=== PATIENT | female | born 1970 ===

== ENCOUNTER 2023-10-29 06:10 | Day surgery (SDC) | payer OTHER ==
[2023-10-18 09:33] LABS: URINE APPEARANCE Clear; URINE BILIRRUBIN Negative (NEGATIVE); URINE BLOOD Trace; URINE COLOR Yellow; URINE GLUCOSE Negative (NEGATIVE); URINE LEUKOCYTE Negative; URINE NITRATE Negative; URINE PROTEIN Negative (NEGATIVE); URINE UROBILINOGEN 0.2 E.U./dl
[2023-10-18 09:34] LABS: URINE BACTERIA 264.5 uL (0.0-1933); URINE EPITHELIAL CELLS 11.4 uL (0.0-38.8); URINE RBC 9.7 uL (0.0-20.8)
[2023-10-18 09:34] LABS: HEMATOCRIT 39.3 % (36.0-45.00); MEAN CELL VOLUME 85.6 fL (80.00-100.00); MEAN CORPUSCULAR HEMOGLOBIN 28.4 pg (27.00-32.0); MEAN CORPUSCULAR HGB CONC 33.2 g/dl (32.0-36.0); PLATELET COUNT 257 K/uL (150-450); RED BLOOD COUNT 4.59 M/uL (4.00-6.00); RED CELL DISTRIBUTION WIDTH 14.2 % (11.5-14.5)
[2023-10-18 10:15] LABS: ALBUMIN 3.8 gm/dL (3.4-5.0); BILIRUBIN TOTAL 0.48 mg/dL (0.3-1.2); CREATININE SERUM 0.68 mg/dL (0.55-1.02); GFR 91.22; GLOBULINA 3.2 G/DL (2.4-3.5); POTASSIUM 4.26 mEq/L (3.5-5.1)
[2023-10-18 10:17] LABS: INR 0.96; PARTIAL THROMBOPLASTIN TIME 26.8 SECONDS (22.0-34.0); PROTHROMBIN TIME 10.1 SECONDS (9.0-11.5)
[~2023-10-29 06:10] MED LIST: CLONAZEPAN; LINACLOTIDE; PANTOPRAZOLE; VOLTAREN; WELBUTRIN
[2023-10-29] MEDS ORDERED: CEFAZOLIN SODIUM 1,000 MG VIAL ONE (07:42)
[2023-10-29] MEDS ORDERED: BUPIVACAINE HCL/PF 0.5% 30ML ML ONE (13:27)
[2023-10-29] MEDS ORDERED: BUPIVACAINE HCL/PF 0.5% 30ML ML IJ SCH (14:15)
[2023-10-29] MEDS ORDERED: CEFAZOLIN SODIUM 1,000 MG VIAL IV SCH (14:15)
== END 2023-10-29 17:25 | disposition home or self-care (01) ==
LOC: CIR.AMB 06:10
PROVIDERS: ATTEND Orthopaedic Surgery Hand Surgery
DX: M18.11 Unilateral primary osteoarthritis of first carpometacarpal joint, right hand (principal); G56.01 Carpal tunnel syndrome, right upper limb; Z20.822 Contact with and (suspected) exposure to COVID-19